=== PATIENT | female | born 1955 | race African-American/Black ===

== ENCOUNTER 2017-10-24 05:30 | Day surgery (SDC) | payer BC ==
[~2017-10-24] VITALS: Ht 170.2 cm; Wt 85.3 kg
--- NOTE | ~2017-10-24 | 24HR ---
[place] [address] [facility] [place] [address] 24 HR ELECTROCARDIOGRAM REPORT Name: ELPIDIO JAMES Room #: DEP [facility]#: [id number] Admission: 10/24/17 Attend Phys: Tony Holbrook MD Discharge: 10/24/17 Date of : 53 Date of Service: 11/28/17 1354 Report #: [id number] THIS REPORT FOR: //name// [facility] Test Date: 2017-11-28 Test Time: 13:54:00 Pat Name: ELPIDIO JAMES Department: Room: Gender: Wireless Store Manager: : 1955 Requested By: Queta Carrasco Order Number: [id number] Donna MD: Sunil Velazco Interpretive Statements CC: Johny Ji This is a Holter monitor. INDICATION FOR THE PROCEDURE: Chest pain and palpitations. This is a 48-hour Holter. TEST DATE: 11/28/2017 and 11/29/2017. The patient was monitored for 47 hours and 59 minutes. The entire time period was analyzed. A total of 205,398 beats were analyzed. The average heart rate was 71 beats per minute. The minimum heart rate was 44 beats per minute and was sinus bradycardia at 6:38 a.m. The maximum heart rate was 130 beats per minute and was sinus tachycardia at 2:16 p.m. There were rare ventricular premature beats. There were only 40 seen on the entire record. There were no couplets, there were no triplets and there were no runs of ventricular tachycardia. There were 42 supraventricular premature beats. There was 1 atrial run of 3 beats. At 8:05 a.m., the heart rate was 141 beats per minute. There were no atrial couplets. The longest RR interval was 1.5 seconds at 1:05 a.m. There was no atrial fibrillation. IMPRESSION: Normal sinus rhythm with periods of mild sinus tachycardia and mild sinus bradycardia. There were rare ventricular premature beats and rare atrial premature beats. There was one 3-beat run of atrial tachycardia or an atrial triplet. [facility] [address] [place] [address] 24 HR ELECTROCARDIOGRAM REPORT Name: ELPIDIO JAMES Room #: DEP [facility]#: [id number] Admission: 10/24/17 Attend Phys: Tony Holbrook MD Discharge: 10/24/17 Date of : 53 Date of Service: 11/28/17 1354 Report #: [id number] Electronically Signed On 12-23-2017 15:36:24 CDT by Sunil Velazco [email or web address] <ELECTRONICALLY SIGNED> By: Sunil Velazco MD, [facility] 12/23/17 1536 1354 1354 Sunil Velazco MD, [facility] /EPI
--- NOTE | ~2017-10-24 | O ---
[facility] [place] [address] OPERATIVE REPORT Name: ELPIDIO JAMES Room #: DEP [facility].#: [id number] Admission: 10/24/17 Attend Phys: Tony Holbrook MD Discharge: 10/24/17 Date of : 53 Report #: [id number] THIS REPORT FOR: //name// CC: Johny MCMAHON [facility] physician/PCP Tony Holbrook DATE OF SERVICE: 10/24/2017 PREOPERATIVE DIAGNOSIS: Hidradenitis with 2 infected areas in the right groin, one on the left and then one in the left perineum. POSTOPERATIVE DIAGNOSIS: Hidradenitis with 2 infected areas in the right groin, one on the left and then one in the left perineum. PROCEDURES PERFORMED: Excision of 4 areas of involvement of hidradenitis. ANESTHESIA: General. SURGEON: Tony Holbrook M.D. COMPLICATIONS: None. ESTIMATED BLOOD LOSS: 10 mL. FINDINGS: There are several infected lesions from hidradenitis. These were completely excised with elliptical excision. Mostly, these are all measuring about 2 x 5 to 6 cm. The infected areas were felt to be completely removed. DESCRIPTION OF PROCEDURE: With the patient under general anesthesia, the groin and pubic areas were prepped and draped in sterile fashion with the patient in lithotomy position. IV antibiotic was administered. A 0.25% Marcaine was used to anesthetize the skin and subcutaneous tissue. The left groin has two areas, one in the crease and one above the crease. They did not appear to be connecting together. The inferior one has actually an opening that I probed and it does not go up into the more superior, slightly medial located infection. These were removed with separate elliptical excisions. The craniocaudad measurement is about 2 cm and the transverse dimension is about a 5-6 cm transversely. The skin was incised sharply and cautery was used to dissect the subcutaneous tissue. Both lesions were felt completely removed. The subcutaneous tissue was cleaned. The skin was closed with 4-0 nylon in a running fashion. Both of these were closed in an identical manner. The left groin was then performed. The left perineum was then lastly performed. These were again excised with an ellipse. The peritoneal one ellipse is more [address] [address] OPERATIVE REPORT Name: ELPIDIO JAMES Room #: DEP [facility].#: [id number] Admission: 10/24/17 Attend Phys: Tony Holbrook MD Discharge: 10/24/17 Date of : 53 Report #: [id number] vertically oriented. These all measured about the same size. This was found to be complete excision. There did not appear to be any leftover. There is some old scar, but not active disease. Antibiotic ointment, 4 x 4 and OpSite were used for dressing. The patient was then awakened and taken to recovery room. <ELECTRONICALLY SIGNED> By: Tony Holbrook MD 10/31/17 1430 2214 2233 Tony Holbrook MD /nella
--- NOTE | ~2017-10-24 | S ---
[facility] [place] [address] SURGICAL PATH RPT PROCEDURE Name: LAURYN DENT Room #: DEP [facility].#: [id number] Admission: 10/24/17 Date of : 53 Discharge: 10/24/17 Report #: [id number] Path Case #: [id number] PATHOLOGY REPORT COLLECTION DATE: 10/24/2017 RECEIVED DATE: 10/24/2017 SUBMITTING PHYS: Dr. Tony Holbrook OTHER PHYS: Johny Nolen PA-C * AMENDED (CORRECTED) REPORT * SPECIMEN(S) RECEIVED: A.Right groin inferior hidradenitis B.Right groin superior hidradenitis C.Left groin hidradenitis D.Left perineum hidradenitis * * * * * * * * * * * * FINAL DIAGNOSIS: 10/25/2017 AMENDED REPORT: This amendment is issued to correct parts A and C as they were flipped in the gross description. The remainder of the report remains unchanged. A. "Right groin inferior hidradenitis", excision: - Skin and subcutaneous tissue with acute and chronic inflammation, necrosis, granulation tissue and early epidermal inclusion cyst formation with overlying pseudoepitheliomatous hyperplasia consistent with hidradenitis. B. "Right groin superior hidradenitis", excision: - Skin and subcutaneous tissue with acute and chronic inflammation, necrosis, granulation tissue, keratin debris with foreign body-type giant cell response and overlying pseudoepitheliomatous hyperplasia consistent with hidradenitis. C. "Left groin hidradenitis", excision: - Skin and subcutaneous tissue with acute and chronic inflammation, necrosis, granulation tissue and pseudoepitheliomatous hyperplasia consistent with hidradenitis. D. "Left perineum hidradenitis", excision: - Skin and subcutaneous tissue with acute and chronic inflammation, necrosis, granulation tissue and epidermal inclusion cyst formation with foreign body-type giant cell response and overlying pseudoepitheliomatous hyperplasia consistent with hidradenitis. (CLW:kasandra; 10/25/2017) A. "Right groin inferior hidradenitis", excision: [facility] [address] [place] [address] SURGICAL PATH RPT PROCEDURE Name: LAURYN DENT Room #: [facility] Wong.#: [id number] Admission: 10/24/17 Date of : 53 Discharge: 10/24/17 Report #: [id number] Path Case #: [id number] - Skin and subcutaneous tissue with acute and chronic inflammation, necrosis, granulation tissue and pseudoepitheliomatous hyperplasia consistent with hidradenitis. B. "Right groin superior hidradenitis", excision: - Skin and subcutaneous tissue with acute and chronic inflammation, necrosis, granulation tissue, keratin debris with foreign body-type giant cell response and overlying pseudoepitheliomatous hyperplasia consistent with hidradenitis. C. "Left groin hidradenitis", excision: - Skin and subcutaneous tissue with acute and chronic inflammation, necrosis, granulation tissue and early epidermal inclusion cyst formation with overlying pseudoepitheliomatous hyperplasia consistent with hidradenitis. D. "Left perineum hidradenitis", excision: - Skin and subcutaneous tissue with acute and chronic inflammation, necrosis, granulation tissue and epidermal inclusion cyst formation with foreign body-type giant cell response and overlying pseudoepitheliomatous hyperplasia consistent with hidradenitis. (CLW:kasandra; 10/25/2017) PATHOLOGIST: Kary Medina M.D. REPORT ELECTRONICALLY SIGNED BY: Kary Medina M.D. DATE/TIME: 10/28/2017 12:45 * * * * * * * * * * * * GROSS PATHOLOGY: A. Received in formalin labeled "Lauryn Dent, right groin inferior hidradenitis" is an ellipse of dark brown skin and underlying yellow-montalvo lobulated soft tissue which measures 4.2 x 1.8 cm and is excised to a maximum depth of 3.3 cm. Present on the skin surface are multiple montalvo-brown fibrotic nodules covering a 1.5 x 0.6 cm area. [employer] Est[employer] Specialist sections of the specimen are submitted in cassette A1. B. Received in formalin labeled "Lauryn Dent, right groin superior hidradenitis" is an ellipse of dark brown skin and underlying yellow-montalvo lobulated soft tissue which measures 4.3 x 1.6 cm in width and is excised to maximum depth of 2.5 cm. Present on the skin surface are multiple montalvo-white fibrotic nodules which cover a 1.0 x 0.6 cm area. [employer] Estuary Specialist sections of the specimen are submitted in cassette B1. C. Received in formalin labeled "Lauryn Dent, left groin hidradenitis" is an ellipse of dark brown skin and underlying yellow-montalvo lobulated soft tissue which measures 4.8 x 2.0 cm and is excised to a maximum depth of 2.0 cm. Present on the skin surface are multiple pink-montalvo fibrotic nodules which cover a 1.8 x 0.7 cm area. [employer] Estuary Specialist sections of the specimen are submitted in cassette C1. D. Received in formalin labeled "Lauryn Dent, left perineum [facility] [address] [place] [address] SURGICAL PATH RPT PROCEDURE Name: LAURYN DENT Room #: DEP [facility] Paige#: [id number] Admission: 10/24/17 Date of : 53 Discharge: 10/24/17 Report #: [id number] Path Case #: [id number] hidradenitis" is an ellipse of dark brown skin and underlying yellow-montalvo lobulated soft tissue which measures 4.8 x 2.0 cm and is excised to a maximum depth of 3.1 cm. The skin surface has an irregular montalvo-brown fibrotic area measuring 2.6 x 0.8 cm. Coast[employer] Estuary Specialist sections of the specimen are submitted in cassette D1. ([facility]; 10/24/2017) CLINICAL HISTORY: Hidradenitis bilateral groin, left perineum. INITIAL CPT CODE(S): A; 25097 B; 52340 C; 38934 D; 94988 Professional services performed by [facility] at [place] [address] [address], [place] [address] Technical services performed by [facility] at [address] [place] [address], [facility] [address] [address]. [facility] [address] [place] [address] PHONE: [phone] DIRECTOR: Amrit Narvaez M.D. * * * END OF REPORT * * *
--- NOTE | ~2017-10-24 | EKG ---
[address] [address] ELECTROCARDIOGRAM REPORT Name: ELPIDIO JAMES Room #: 150-5 [facility]#: [id number] Admission: 10/24/17 Attend Phys: Tony Holbrook MD Discharge: Date of : 53 Report #: [id number] THIS REPORT FOR: //name// [facility] Test Date: 2017-10-24 Test Time: 09:56:21 Pat Name: ELPIDIO JAMES Department: Room: 150 5 Gender: F Social Service Worker: ALEXEY : 1955 Requested By: Tony Holbrook Order Number: [id number] MD: Audi Avila Measurements Intervals [place] Rate: 57 P: 30 [place]: 142 QRS: -17 QRSD: 98 T: -5 QT: 438 QTc: 427 Interpretive Statements Sinus rhythm Left ventricular hypertrophy Borderline abnrm T, anterolateral leads No previous ECG available for comparison Electronically Signed On 10-25-2017 8:26:16 REFERENCE TEST CLERK by Audi Avila [email or web address] <ELECTRONICALLY SIGNED> By: Audi Avila MD 10/25/17 0826 955 5 Audi Avila MD /MARIA GUADALUPE
--- NOTE | ~2017-10-24 | 24HR ---
[facility] [place] [address] 24 HR ELECTROCARDIOGRAM REPORT Name: ELPIDIO JAMES Room #: DEP [facility]#: [id number] Admission: 10/24/17 Attend Phys: Tony Holbrook MD Discharge: 10/24/17 Date of : 53 Date of Service: Report #: [id number] THIS REPORT FOR: //name// CC: Johny Ji This is a Holter monitor. INDICATION FOR THE PROCEDURE: Chest pain and palpitations. This is a 48-hour Holter. TEST DATE: 11/28/2017 and 11/29/2017. The patient was monitored for 47 hours and 59 minutes. The entire time period was analyzed. A total of 205,398 beats were analyzed. The average heart rate was 71 beats per minute. The minimum heart rate was 44 beats per minute and was sinus bradycardia at 6:38 a.m. The maximum heart rate was 130 beats per minute and was sinus tachycardia at 2:16 p.m. There were rare ventricular premature beats. There were only 40 seen on the entire record. There were no couplets, there were no triplets and there were no runs of ventricular tachycardia. There were 42 supraventricular premature beats. There was 1 atrial run of 3 beats. At 8:05 a.m., the heart rate was 141 beats per minute. There were no atrial couplets. The longest RR interval was 1.5 seconds at 1:05 a.m. There was no atrial fibrillation. IMPRESSION: Normal sinus rhythm with periods of mild sinus tachycardia and mild sinus bradycardia. There were rare ventricular premature beats and rare atrial premature beats. There was one 3-beat run of atrial tachycardia or an atrial triplet. By: D: T: /
[~2017-10-24 05:30] MED LIST: ALEVE220 MG PO; BACTRIM DS TAB1 EACH; COQ-10100 MG PO; DOXYCYCLINE 10100 M1; DOXYCYCLINE 10100 MG PO; HUMIRA40 MG/0.1; METFORMIN HCL500 MG PO; NORCO 5-325 TA1 EACH PO; SYNTHROID300 MCG PO
[2017-10-24 10:05] VITALS: BP 138/71
[2017-10-24] MEDS ORDERED: NORCO 5-325 TA1 EACH PO (13:13)
[2017-10-24 13:38] VITALS: BP 138/71
[2018-02-18] MEDS ORDERED: JARDIANCE10 MG PO (15:02)
[2018-02-18] MEDS ORDERED: CRESTOR10 MG PO (15:03)
[2018-02-18] MEDS ORDERED: [UNRECOGNIZED DRUG - OTHER] PO (15:04)
== END 2017-10-24 14:30 | disposition home or self-care (01) ==
LOC: OR 05:30 → TBA 05:30 → OR 11:26
DX: L73.2 Hidradenitis suppurativa (principal); E11.9 Type 2 diabetes mellitus without complications; E03.9 Hypothyroidism, unspecified; G47.33 Obstructive sleep apnea (adult) (pediatric); Z98.890 Other specified postprocedural states; Z79.891 Long term (current) use of opiate analgesic; Z79.899 Other long term (current) drug therapy
CPT/HCPCS: 50010; 50101; 50386; 50403; 54118; 56525; 56526; 62110; 62900; 70005

== ENCOUNTER → 2017-11-28 | Outpatient (CLI) | payer BC ==
--- NOTE | ~2017-11-28 | 24HR ---
[facility] [place] [address] 24 HR ELECTROCARDIOGRAM REPORT Name: JACOBELPIDIO J Room #: PRE [facility]#: [id number] Admission: Attend Phys: Queta Carrasco, Discharge: Date of : 53 Date of Service: 12/05/17 1303 Report #: [id number] THIS REPORT FOR: //name// CC: Johny Ji This is a Holter monitor. INDICATION FOR THE PROCEDURE: Chest pain and palpitations. This is a 48-hour Holter. TEST DATE: 11/28/2017 and 11/29/2017. The patient was monitored for 47 hours and 59 minutes. The entire time period was analyzed. A total of 205,398 beats were analyzed. The average heart rate was 71 beats per minute. The minimum heart rate was 44 beats per minute and was sinus bradycardia at 6:38 a.m. The maximum heart rate was 130 beats per minute and was sinus tachycardia at 2:16 p.m. There were rare ventricular premature beats. There were only 40 seen on the entire record. There were no couplets, there were no triplets and there were no runs of ventricular tachycardia. There were 42 supraventricular premature beats. There was 1 atrial run of 3 beats. At 8:05 a.m., the heart rate was 141 beats per minute. There were no atrial couplets. The longest RR interval was 1.5 seconds at 1:05 a.m. There was no atrial fibrillation. IMPRESSION: Normal sinus rhythm with periods of mild sinus tachycardia and mild sinus bradycardia. There were rare ventricular premature beats and rare atrial premature beats. There was one 3-beat run of atrial tachycardia or an atrial triplet. <ELECTRONICALLY SIGNED> By: Queta Carrasco MD, FACC 12/10/17 1612 1303 1321 Queta Carrasco MD, FACC /nt
== END ==
LOC: CV 13:33
DX: R07.9 Chest pain, unspecified (principal); R00.2 Palpitations

== ENCOUNTER 2018-02-19 05:32 | Day surgery (SDC) | payer BC ==
[~2018-02-19] VITALS: Ht 172.7 cm; Wt 85.7 kg
--- NOTE | ~2018-02-19 | O ---
[facility] [place] [address] OPERATIVE REPORT Name: ELPIDIO JAMES Room #: DEP [facility].#: [id number] Admission: 02/19/18 Attend Phys: Tony Holbrook MD Discharge: 02/19/18 Date of : 53 Report #: [id number] THIS REPORT FOR: //name// CC: Tony Holbrook Anatoliy Ji DATE OF SERVICE: 02/19/2018 PREOPERATIVE DIAGNOSIS: Multiple abscesses in the pubic area and upper inner thigh from hidradenitis suppurativa. POSTOPERATIVE DIAGNOSIS: Multiple abscesses in the pubic area and upper inner thigh from hidradenitis suppurativa. PROCEDURE PERFORMED: Excision of multiple abscesses, total 10. ANESTHESIA: IV sedation, local 0.25% Marcaine and 1% lidocaine mixed. SURGEON: Tony Holbrook MD COMPLICATIONS: None. ESTIMATED BLOOD LOSS: 50 mL. PROCEDURE NOTE: With the patient under IV sedation, the pubic area and the perineum groin area was prepped and draped in sterile fashion bilaterally. The multiple abscesses were identified and marked. We started on the patient's right side. Three of the abscesses were marked out. The ellipse to excise these measured 2.5 x 5 cm. The skin was excised down to the subcutaneous fat. The subcutaneous fat all appeared normal. Three separate areas were excised on the right side. This was in the crease and also in the upper inner thigh. These were closed with 4-0 nylon in a running fashion. Then, over the mons pubic area, there was a 1.5 x 3 cm elliptical incision made to remove 3 abscesses over this area. Again, these were closed with 4-0 nylon in running fashion. On the right side there was one abscess that measured 2 x 4 cm. The left side was then performed. Multiple abscesses were excised. The longest one measured 9 cm in length x 3 cm in width. Originally, I removed an area that was about 6-7 cm, but then there was an extension more superiorly. This was removed. Culture was obtained on the one on the right that was fluctuant. There was an abscess that measured 2.5 x 5 cm, removed on the left side, and then a 3 x 6 cm abscess was removed. A total of 10 were areas were removed. These were all brought together with irrigating the wound and then closing with [facility] [address] [place] [address] OPERATIVE REPORT Name: ELPIDIO JAMES [facility] [id number] Admission: 02/19/18 Attend Phys: Tony Holbrook MD Discharge: 02/19/18 Date of : 53 Report #: [id number] 4-0 nylon in running fashion. The patient tolerated the procedure well and taken to recovery room. By: 08 Tony Holbrook MD /nt
[~2018-02-19 05:32] MED LIST changes: +CRESTOR10 MG PO; +JARDIANCE10 MG PO; +[UNRECOGNIZED DRUG - OTHER] PO
[2018-02-19 09:16] VITALS: BP 134/68
[2018-02-19 13:49] VITALS: BP 134/68
== END 2018-02-19 14:15 | disposition home or self-care (01) ==
LOC: OR 05:32 → TBA 05:33 → OR 12:00
DX: L02.415 Cutaneous abscess of right lower limb (principal); L02.416 Cutaneous abscess of left lower limb; L02.214 Cutaneous abscess of groin; L73.2 Hidradenitis suppurativa; E11.9 Type 2 diabetes mellitus without complications; Z79.891 Long term (current) use of opiate analgesic; Z98.890 Other specified postprocedural states; Z79.899 Other long term (current) drug therapy
CPT/HCPCS: 50010; 50101; 50386; 56526; 62110; 62850; 70005

== ENCOUNTER → 2018-09-24 | Outpatient (CLI) | payer BC | LOC: RAD 12:10 | DX: L73.2 Hidradenitis suppurativa (principal); Z79.899 Other long term (current) drug therapy ==

== ENCOUNTER 2018-12-12 05:22 | Day surgery (SDC) | payer BC ==
[~2018-12-12] VITALS: Ht 170.2 cm; Wt 90.7 kg
[~2018-12-12 05:22] MED LIST changes: +AMLODIPINE BESY10 MG PO; +CRESTOR20 MG PO; +HUMIRA40 MG/0.1 SUBQ; +SINGULAIR 10 MG10 M1 PO
[2018-12-12 14:08] VITALS: BP 145/70
[2018-12-12] MEDS ORDERED: NORCO 5-325 TA1 EACH PO (16:32)
[2018-12-12 17:05] VITALS: BP 145/70
--- NOTE | 2018-12-17 11:07 | PATH ---
[facility] [address] [place] [address] PATHOLOGY RPT PROCEDURE Name: LAURYN DENT Rocio Room #: DEP [facility] M.R.#: [id number] ������������������ Admission: 12/12/18 ������������������ Date of : 53 Discharge: 12/12/18 Report #: [id number] Path Case #: [id number] [facility] Accession Number: [id number] . 01 Material submitted: . HIDRADENITIS PERINEAL, BUTTOCKS AND INFRALABIAL . 01 Clinical history: . Hidradenitis. . 02 Diagnosis: Hidradenitis perineal, buttocks, and infralabial, excision: - Marked acute inflammation with abscess formation within subcutaneous tissue, compatible with the provided history of hidradenitis. - Overlying squamous epithelium showing reactive changes. - Completely excised. (LUCIAV:esa; 12/15/2018) MBR/12/15/2018 . 02 Electronically signed: . Nasra Corey MD, Pathologist NPI- [id number] . 01 Gross description: . Received in formalin labeled "Lauryn Dent, hidradenitis perineal, buttocks, and infra-labial" are multiple pieces of dark brown skin and underlying yellow-montalvo lobulated fibroadipose tissue measuring in aggregate 7.0 x 5.8 x 2.0 cm. The cut surfaces display multiple montalvo-white cystic lesions ranging from 0.3-2.3 cm in greatest dimension. A computer help desk representative section is submitted in cassette A1. ([facility]; 12/12/2018) SYC/SYC . 02 Pathologist provided ICD-10: L73.2 . 02 CPT . 581452 Specimen Comment: A courtesy copy of this report has been sent to Specimen Comment: [phone], . Specimen Comment: Report sent to / DR AWAN Specimen Comment: A duplicate report has been generated due to demographic updates. Performed at: [address] [id number] MD Magdiel Melgoza MD Phone: [phone] Performed at: [address] [place] [address] PATHOLOGY RPT PROCEDURE Name: LAURYN DENT Room #: DEP [facility] Paige#: [id number] ������������������ Admission: 12/12/18 ������������������ Date of : 53 Discharge: 12/12/18 Report #: [id number] Path Case #: [id number] [facility] [place] [address], [place], [place] [id number] MD Nasra Corey MD Phone: [phone]
--- NOTE | 2018-12-20 11:08 | O ---
[facility] [address] [place] [address] OPERATIVE REPORT Name: ELPIDIO JAMES Room #: DEP [facility].#: [id number] Admission: 12/12/18 ������������������ Attend Phys: Tony Holbrook MD Discharge: 12/12/18 ������������������ Date of : 53 Report #: [id number] THIS REPORT FOR: //name// CC: Tony Ji DATE OF SERVICE: 12/12/2018 PREOPERATIVE DIAGNOSIS: Hidradenitis with chronic infected scar tissue x 4, left perineum, left infra-labial, right infra-labial, left buttock. POSTOPERATIVE DIAGNOSIS: Hidradenitis with chronic infected scar tissue x 4, left perineum, left infra-labial, right infra-labial, left buttock. PROCEDURES PERFORMED: Excision of hidradenitis suppurativa: 1. Left perineum that is 1.5 cm in size. 2. Left infra-labial measuring 2.5 cm. 3. Right infra-labial measuring 1.5 cm. 4. Left buttock measuring 2 cm. SURGEON: Tony Holbrook M.D. ANESTHESIA: General anesthesia. ESTIMATED BLOOD LOSS: 50 mL. DESCRIPTION OF PROCEDURE: With the patient under general anesthesia in the lithotomy position, the perineal area, buttock area was prepped with Betadine. Local anesthetic was placed around the infected site. Marking pen was used to draw out an ellipse around the infected site. Four separate excisions were performed. The left perineal area is a 1.5 cm, left infra-labial area 2.5 cm, left buttock 2 cm and right infra-labial area 1.5 cm. These are the transverse measurement of the ellipse not the longitudinal, which is longer. Incision carried through the skin and subcutaneous tissue, chronic infected tissue was excised. Hemostasis obtained with cautery. The skin was closed with 4-0 nylon in interrupted fashion. The left infra-labial area and the buttock area the subcutaneous was closed with 4-0 PDS. A 4-0 nylon was used to close the skin. The patient tolerated the procedure well. Antibiotic ointment, 4 x 4, tape was applied. The patient was also placed in mesh postop surgical panty. The patient was taken to recovery room. ��������������������������������������������� <ELECTRONICALLY SIGNED> ���������������������������������������� By: Tony Holbrook MD ��������������������������������������������� 12/20/18 1108 1235 1321 Tony Holbrook MD /nt
== END 2018-12-12 17:50 | disposition home or self-care (01) ==
LOC: OR 05:22 → TBA 05:22 → OR 14:07
DX: L73.2 Hidradenitis suppurativa (principal); I10 Essential (primary) hypertension; E78.5 Hyperlipidemia, unspecified; G47.33 Obstructive sleep apnea (adult) (pediatric); E11.9 Type 2 diabetes mellitus without complications; E03.9 Hypothyroidism, unspecified; Z98.890 Other specified postprocedural states; Z79.899 Other long term (current) drug therapy; Z79.891 Long term (current) use of opiate analgesic
CPT/HCPCS: 50010; 50101; 50386; 56525; 56526; 62110; 62900; 70005

== ENCOUNTER 2019-07-22 12:52 | Day surgery (SDC) | payer BC ==
[~2019-07-22] VITALS: Ht 170.2 cm; Wt 93.0 kg
[~2019-07-22 12:52] MED LIST changes: +HYDROCHLOROTHIA25 M2 PO
[2019-07-22 14:22] LABS: CALCIUM 9.5 mg/dL (8.5-10.1); CREATININE 0.9 mg/dL (0.6-1.0); POTASSIUM 3.6 mmol/L (3.5-5.1)
[2019-07-22 15:26] VITALS: BP 115/63
[2019-07-22] MEDS ORDERED: NORCO 5-325 TA1 EAC1 PO (17:33)
[2019-07-22 18:28] VITALS: BP 115/63
--- NOTE | 2019-07-23 08:38 | EKG ---
[place] [address] [facility] [place] [address] ELECTROCARDIOGRAM REPORT Name: ELPIDIO JAMES Room #: [facility]#: [id number] Admission: 07/22/19 Attend Phys: Tony Holbrook MD Discharge: 07/22/19 Date of : 53 Report #: [id number] THIS REPORT FOR: //name// [facility] Test Date: 2019-07-22 Test Time: 13:53:30 Pat Name: ELPIDIO JAMES Department: Room: 150 10 Gender: F E [employer]: ALEXEY : 1955 Requested By: Tony Holbrook Order Number: [id number] MD: Nicola Roe Measurements Intervals Lester Rate: 67 P: 43 CO: 156 QRS: -17 QRSD: 101 T: -7 QT: 426 QTc: 450 Interpretive Statements Sinus rhythm Abnormal R-wave progression, late transition Left ventricular hypertrophy Nonspecific T wave abnormality Compared to ECG 10/24/2017 09:56:21 No significant change was found Electronically Signed On 07-23-2019 8:38:22 CDT by Nicola Roe [email or web address] <ELECTRONICALLY SIGNED> By: Nicola Roe MD, FAC 07/23/19 0838 1353 1353 Nicola Roe MD, [facility] /EPI
--- NOTE | 2019-07-24 17:06 | PATH ---
[facility] [address] [place] [address] PATHOLOGY RPT PROCEDURE Name: LAURYN DENT Room #: DEP [facility].#: [id number] Admission: 07/22/19 Date of : 53 Discharge: 07/22/19 Report #: [id number] Path Case #: [id number] [facility] Accession Number: [id number] . 01 Material submitted: . PART A: chest - RIGHT INFRAMAMMARY FOLD ABSCESS WITH SINUS TRACT. Modifiers: right PART B: chest - LEFT CHEST ABSCESS. Modifiers: left PART C: buttock - RIGHT BUTTOCK ABSCESS. Modifiers: right PART D: buttock - LEFT SACRUM/BUTTOCK ABSCESS. Modifiers: left . 01 Clinical history: . Hidradenitits suppurativa . 02 Diagnosis: A. Skin and subcutaneous tissue, right inframammary fold abscess with sinus tract, excision: - Mature keratinous cyst associated with abscess formation and a fistula tract. - Overlying squamous epithelium showing reactive changes. . B. Skin and subcutaneous tissue, left chest abscess, excision: - Mature keratinous cyst associated with abscess formation. - Overlying squamous epithelium showing reactive changes . C. Skin, right buttock abscess, excision: - Mature keratinous cyst associated with abscess formation. - Overlying squamous epithelium showing reactive changes . D. Skin, left sacrum/buttock abscess, excision: - Mature keratinous cyst associated with abscess formation. - Overlying squamous epithelium showing reactive changes (IUV:pit; 07/24/2019) QTP 07/24/2019 1414 Local . 02 Electronically signed: . Nasra Corey MD, Pathologist NPI- [id number] . 01 Gross description: . A. Received in formalin labeled "Lauryn Dent, right inframammary fold abscess with sinus tract," is an elliptical segment of skin measuring 7.3 x 2.2 cm with attached underlying yellow, lobulated adipose tissue and scant pink-montalvo soft tissue measuring 7.9 x 5.2 x 3.1 cm. The epidermal surface displays a furrow along one peripheral edge that extends along the major axis of the specimen for a linear length of 4.6 cm. The edge opposite displays a slightly recessed area of goyal-montalvo, partially [address] [address] PATHOLOGY RPT PROCEDURE Name: LAURYN DENT Room #: [facility] Paige#: [id number] Admission: 07/22/19 Date of : 53 Discharge: 07/22/19 Report #: [id number] Path Case #: [id number] disrupted skin measuring 2.0 x 0.4 cm that extends to within 0.1 cm of the nearest peripheral edge. The surgical margin is inked. Serial sectioning reveals a hemorrhagic sinus tract/abscess cavity underlying the area of disrupted skin that grossly appears to communicate with the skin surface and extends for a linear length of approximately 2.5 cm underneath the skin surface. Also noted near the sinus tract is a possible cystic structure measuring 0.3 cm on cut surface and containing pale montalvo, friable material. The sinus tract/abscess cavity is surrounded by pink-montalvo, partially hemorrhagic cut surfaces, with homogenous pale yellow cut surfaces through the remainder of the hypodermis. Represent of sections are submitted as follows: . A1: Sinus tract A2: Possible cystic structure and adjacent sinus tract A3: Extension of abscess cavity to skin surface . B. Received in formalin labeled "Lauryn Dent, left chest abscess," is an ellipse of skin measuring 2.6 x 1.3 cm and excised to a depth of up to 0.6 cm with a partially attached segment of yellow lobulate adipose tissue at the deep margin measuring 1.3 x 1.0 x 0.6 cm. The epidermal surface displays a wrinkled, light montalvo papule measuring 0.7 x 0.6 x 0.1 cm with a slight central depression measuring 0.1 x 0.1 cm. The papule extends to within 0.3 cm of the nearest peripheral edge. The surgical margin is inked. Serial sectioning reveals firm, pale yellow-montalvo cut surfaces, with a possible cystic cavity directly underlying the skin surface papule that measures 0.2 cm on cut surface. The specimen is sectioned into 11 pieces and submitted entirely in cassettes B1 through B4, with bisected tips in B4. . C. Received in formalin labeled "Lauryn Dent, right buttock abscess," is an ovoid segment of skin measuring 3.8 x 1.8 cm and excised to a depth of up to 0.9 cm. The epidermal surface displays an irregularly contoured, pink-montalvo nodule measuring 1.7 x 0.7 x 0.1 cm that extends to within 0.2 cm of the nearest peripheral edge. The surgical margin is inked. Serial sectioning reveals firm, pastel orange-yellow cut surfaces underlying the epidermal surface nodule, with pale yellow-montalvo cut surfaces through the remainder of the specimen. Dietitian sections through the nodule/discoloration are submitted in cassettes C1 and C2. . D. Received in formalin labeled "Lauryn Dent, left sacrum/buttock abscess," is an ellipse of skin measuring 3.2 x 1.2 cm and excised to a depth of up to 1.5 cm. The epidermal surface displays an area of pale white-montalvo discoloration measuring 0.6 x 0.3 cm that extends to within 0.2 cm of the nearest peripheral edge. The surgical margin is inked. Serial sectioning reveals an area of firm, orange-yellow discoloration underlying the skin surface that measures up to 0.7 cm on cut surface. The remaining epidermal surface is pale yellow-montalvo in appearance. Dietitian sections of the discolored area underlying the [place] [address] PATHOLOGY RPT PROCEDURE Name: LAURYN DENT Room #: [facility]P [facility] Paige#: [id number] Admission: 07/22/19 Date of : 53 Discharge: 07/22/19 Report #: [id number] Path Case #: [id number] in cassettes D1 and D2. ([facility]; 07/23/2019) XDC/XDC 07/23/[address] [place] [address] . Pathologist provided ICD-10: L72.0, J86.0, L02.31 . 02 CPT . 006782, 161172, 011278, 897359 Specimen Comment: A courtesy copy of this report has been sent to [phone], [phone] Specimen Comment: [phone] Specimen Comment: Report sent to / DR AWAN Performed at: [address], [place] [id number] MD Magdiel Melgoza MD Phone: [phone] Performed at: [address] [id number] MD Nasra Corey MD Phone: [phone]
--- NOTE | 2019-08-11 12:03 | O ---
[facility] [place] [address] OPERATIVE REPORT Name: ELPIDIO JAMES Room #: DEP [facility].#: [id number] Admission: 07/22/19 Attend Phys: Tony Holbrook MD Discharge: 07/22/19 Date of : 53 Report #: [id number] THIS REPORT FOR: //name// CC: Tony Ji DATE OF SERVICE: 07/22/2019 PREOPERATIVE DIAGNOSES: 1. Abscess with draining sinus tract from hidradenitis in the right inframammary fold. 2. Hidradenitis lesion, left breast. 3. Hidradenitis lesion in the right buttock with 2 infected sites adjacent to each other. 4. Left lower sacral hidradenitis. POSTOPERATIVE DIAGNOSES: 1. Abscess with draining sinus tract from hidradenitis in the right inframammary fold. 2. Hidradenitis lesion, left breast. 3. Hidradenitis lesion in the right buttock with 2 infected sites adjacent to each other. 4. Left lower sacral hidradenitis. PROCEDURE PERFORMED: Excision of multiple hidradenitis listed above. ANESTHESIA: General anesthetic. COMPLICATIONS: None. BLOOD LOSS: 50 mL. PROCEDURE NOTE: The chest was prepped and draped in sterile fashion. Timeout was performed. The patient did receive preoperative IV antibiotics. The two openings just below the inframammary fold were probed and it does go into an abscess, which is 2 cm deep from the opening site. An ellipse was drawn surrounding the entire area. This is about 3 cm width and about 8 cm in length. After incising through the skin and subcutaneous tissue, cautery was used for the dissection along with sharp dissection. A 0.25% Marcaine was injected prior to procedure. The entire area was excised. The subcutaneous tissue surrounding is all normal appearing. I did not see any residual infection or did not cut into the infected site. Irrigation was performed. The subcutaneous tissue was closed with 3-0 PDS and then the skin was closed with 4-0 nylon in interrupted fashion. The left breast was then anesthetized and excised in the elliptical manner. [facility] [address] [place] [address] OPERATIVE REPORT Name: ELPIDIO JAMES Room #: [facility]P [facility].#: [id number] Admission: 07/22/19 Attend Phys: Tony Holbrook MD Discharge: 07/22/19 Date of : 53 Report #: [id number] This is an isolated abscess that measures about a cm in length. This was removed without difficulty and then closed with 5-0 PDS running subcuticular fashion. Steri-Strips applied, 4 x 4, OpSite used for dressing in the left breast. Antibiotic ointment was placed over the large incision on the right inframammary fold. 4 x 4s, ABD, Medipore tape was applied. The patient was then turned to a left lateral decubitus position. The area of involvement in the right buttock in the sacral area was prepped with ChloraPrep. Again, local anesthetic was injected around this area. The lesion was then excised. A transverse incision was made over the right buttock area and both the nodule or abscess lesion was excised and this was closed with 4-0 nylon. The sacral lesion was also excised. This was primarily closed also with 4-0 nylon in interrupted suture. A 4 x 4 was placed over this area. Antibiotic ointment was applied. Medipore tape was applied. The patient was then awakened, moved into the supine position. The patient tolerated the procedure well. <ELECTRONICALLY SIGNED> By: Tony Holbrook MD 08/11/19 1203 1139 1235 Tony Holbrook MD /nt
== END 2019-07-22 19:15 | disposition home or self-care (01) ==
LOC: OR 12:52 → TBA 12:52 → OR 13:07
PROVIDERS: Surgery
DX: L73.2 Hidradenitis suppurativa (principal); J86.0 Pyothorax with fistula; I10 Essential (primary) hypertension; E78.5 Hyperlipidemia, unspecified; E11.9 Type 2 diabetes mellitus without complications; G47.30 Sleep apnea, unspecified; Z98.890 Other specified postprocedural states; Z79.899 Other long term (current) drug therapy
CPT/HCPCS: 50010; 50101; 50386; 50417; 56524; 56526; 56527; 62110; 62900; 70005